=== PATIENT | male | born 1950 | race African-American/Black ===

== ENCOUNTER 2022-09-19 05:54 | Day surgery (SDC) | payer OTHER ==
[2022-09-18 10:44] VITALS: BMI 18.4
[2022-09-19] MEDS ORDERED: EPINEPHrine 1 MG/ML AMP ONE (06:20)
[2022-09-19] MEDS ORDERED: Bupivacaine PF 0.5% 30 ML VIAL ONE (06:21)
[2022-09-19] MEDS ORDERED: CEFAZOLIN 2 GM VIAL ONE (06:48)
[2022-09-19] MEDS ORDERED: PROPOFOL 20 ML ONE (06:56)
[2022-09-19] MEDS ORDERED: Fentanyl 100 MCG/2 ML VIAL ONE (06:56)
[2022-09-19] MEDS ORDERED: Lidocaine 1% PF 5 ML VIAL ONE (06:56)
[2022-09-19] MEDS ORDERED: Ondansetron PF 4 MG/2 ML Vial ONE (06:57)
[2022-09-19] MEDS ORDERED: ePHEDrine Sulfate 50 MG/10 ML VIAL ONE (07:12)
[2022-09-19] MEDS ORDERED: Acetaminophen 325 MG TAB PO PRN (07:42)
[2022-09-19] MEDS ORDERED: HYDROcodone/Acetaminophen 5/325 mg Tablet PO PRN (07:42)
== END 2022-09-19 09:25 | disposition home or self-care (01) ==
LOC: CSHSDC 05:54
PROVIDERS: ATTEND Surgery
PROC: 0JH60WZ Insertion of Totally Implantable Vascular Access Device into Chest Subcutaneous Tissue and Fascia, Open Approach (ICD-10-PCS; principal; 2022-09-19)
DX: C02.9 Malignant neoplasm of tongue, unspecified (principal); J44.9 Chronic obstructive pulmonary disease, unspecified; E11.9 Type 2 diabetes mellitus without complications; F17.210 Nicotine dependence, cigarettes, uncomplicated; I10 Essential (primary) hypertension; Z79.84 Long term (current) use of oral hypoglycemic drugs; Z79.899 Other long term (current) drug therapy
CPT/HCPCS: 36416; 71045; C1788; J0171; J1642; J2405; J2704; J3010; S0020

== ENCOUNTER 2022-09-19 16:21 | Inpatient (IN) | payer MEDICARE, OTHER ==
[~2022-09-19 16:21] MED LIST: Iopamidol 370 76% 100 ML VIAL ONE
[2022-09-19] MEDS ORDERED: Ipratropium/Albuterol 3 ML NEB ONE (16:48)
[2022-09-19] MEDS ORDERED: Dexamethasone 10 MG/ML VIAL ONE ×2 (16:48→20:14)
[2022-09-19] MEDS ORDERED: Magnesium 2 GM/50 ML BAG (IN WATER) ONE (16:48)
[2022-09-19 17:37] LABS: Hemoglobin 14.8 g/dL (13.5-17.5); Mean Corpuscular HGB CONC 35.6 g/dL (32.0-36.0); Mean Corpuscular Volume 92.9 fl (81.2-95.1); Mean Platelet Volume 8.5 fl (7.4-10.4); Platelet Count 262 10x3/uL (150-450); RBC Distribution Width 14.4 % (11.5-14.5); Red Blood Cell (RBC) Count 4.48 10x6/uL (4.32-5.72); White Blood Cell (WBC) Count 23.4 10x3/uL (3.5-10.5)
[2022-09-19 17:44] LABS: ALT (SGPT) 23 U/L (8-55); AST (SGOT) 17 U/L (5-34); Albumin 4.1 g/dL (3.4-4.8); Alkaline Phosphatase 81 U/L (40-110); Anion Gap 14 mmol/L (10-20); BUN (Urea Nitrogen) 30 mg/dL (8.4-25.7); Calc. Creatinine Clearance 0 mL/min (70-130); Calcium 9.7 mg/dL (7.8-10.44); Carbon Dioxide 31 mmol/L (23-31); Chloride 95 mmol/L (98-107); Estimated GFR 95; Globulin 2.9 g/dL (2.4-3.5); Glucose 116 mg/dL (83-110); Potassium 4.3 mmol/L (3.5-5.1); Sodium 136 mmol/L (136-145)
[2022-09-19 18:02] LABS: Band 7 % (5-11); Lymphocytes 3 % (21-51); Monocytes 5 % (0-10); Myelocyte 1 % (0-0); Reactive Lymphocytes 2 % (0-10)
[2022-09-19 18:06] LABS: Large Platelets SLIGHT; Neutrophil 82 % (42-75); Platelet Morphology Comment Appears Adequate
[2022-09-19 18:07] LABS: MDiff Complete? YES; RBC Morphology Normal
[2022-09-19 19:27] LABS: Bilirubin Neg (Negative); Blood, Urine Negative (Negative); Glucose, Urine (Dipstick) Normal (Negative); Ketone, Urine Negative (Negative); Leukocyte 25 (Negative); Nitrite Negative (Negative); Protein, Urine (Dipstick) Negative (Neg-Trace); Urobilinogen Normal mg/dL (Less than 2)
[2022-09-19 19:28] LABS: Clarity Hazy (Clear)
[2022-09-19 19:52] LABS: Bacteria/HPF 2+ HPF (None Seen); RBC/HPF 0-3 HPF (0-3); Squamous Epithelial 0-3 HPF (0-3)
[2022-09-19] MEDS ORDERED: Dextrose 50% Abboject 50 ML SYRINGE SLOW IVP PRN (23:08)
[2022-09-19] MEDS ORDERED: HumaLOG 300 UNITS/3 ML VIAL SC PRN (23:08)
[2022-09-19] MEDS ORDERED: Dextrose 5% in Water 1,000 ML IV PRN (23:08)
[2022-09-19] MEDS ORDERED: Ipratropium/Albuterol 3 ML NEB NEB PRN (23:10)
[2022-09-19] MEDS ORDERED: Aspirin Chewable 81 MG TAB PO SCH (23:30)
[2022-09-19 23:41] LABS: Magnesium 2.2 mg/dL (1.6-2.6)
[2022-09-19 23:48] LABS: Troponin I 0.015 ng/mL (< 0.028)
[2022-09-20 01:23] VITALS: BMI 17.6
[2022-09-20] MEDS ORDERED: Vancomycin HCl 1 GM in Sodium Chloride 0.9% 250 ML 250 ML IVPB SCH (02:00)
[2022-09-20] MEDS: Lactated Ringer's 1,000 ML IV SCH ×2 (02:26→14:37)
[2022-09-20] MEDS ORDERED: FLU VACC QS2022-23(65YR UP)/PF 240 MCG/0.7 ML SYRINGE IM ONE (02:45)
[2022-09-20] MEDS: cefTRIAXone\\ROCEPHIN 1 GM in Sodium Chloride 0.9% 100 ML IVPB SCH (03:34)
[2022-09-20 06:11] LABS: #Monocytes 0.8 10x3/uL (0.0-1.1); #Neutrophils 16.6 10x3/uL (1.5-8.4); %Basophils 0.2 % (0.0-2.0); %Monocytes 4.5 % (0.0-10.0); %Neutrophils 92.3 % (40.0-75.0); Hemoglobin 12.6 g/dL (13.5-17.5); Mean Corpuscular HGB CONC 36.3 g/dL (32.0-36.0); Mean Corpuscular Hemoglobin 33.1 pg (27.0-33.0); Mean Corpuscular Volume 91.1 fl (81.2-95.1); Mean Platelet Volume 8.7 fl (7.4-10.4); Platelet Count 236 10x3/uL (150-450); RBC Distribution Width 14.2 % (11.5-14.5); Red Blood Cell (RBC) Count 3.81 10x6/uL (4.32-5.72)
[2022-09-20 06:32] LABS: Anion Gap 14 mmol/L (10-20); BUN (Urea Nitrogen) 25 mg/dL (8.4-25.7); Calc. Creatinine Clearance 72 mL/min (70-130); Calcium 8.5 mg/dL (7.8-10.44); Carbon Dioxide 26 mmol/L (23-31); Chloride 100 mmol/L (98-107); Estimated GFR 97; Glucose 236 mg/dL (83-110); Potassium 4.5 mmol/L (3.5-5.1); Sodium 135 mmol/L (136-145)
[2022-09-20 06:36] LABS: Troponin I 0.022 ng/mL (< 0.028)
[2022-09-20] MEDS: Aspirin 81 mg Enteric Coated Tablet PO SCH (09:01)
[2022-09-20] MEDS: Vancomycin HCl 750 MG in Sodium Chloride 0.9% 250 ML 250 ML IVPB SCH (14:37)
[2022-09-20] MEDS ORDERED: HYDROcodone/Acetaminophen 5/325 mg Tablet PO SCH (22:00)
[2022-09-21] MEDS: cefTRIAXone\\ROCEPHIN 1 GM in Sodium Chloride 0.9% 100 ML IVPB SCH ×2 (00:41→23:36)
[2022-09-21] MEDS: Lactated Ringer's 1,000 ML IV SCH (01:45)
[2022-09-21] MEDS: Vancomycin HCl 750 MG in Sodium Chloride 0.9% 250 ML 250 ML IVPB SCH ×2 (01:46→15:27)
[2022-09-21] MEDS ORDERED: HYDROcodone/Acetaminophen 5/325 mg Tablet PO SCH (05:15)
[2022-09-21] MEDS: Aspirin 81 mg Enteric Coated Tablet PO SCH (08:23)
[2022-09-21 09:31] LABS: #Monocytes 1.3 10x3/uL (0.0-1.1); #Neutrophils 16.7 10x3/uL (1.5-8.4); %Basophils 0.2 % (0.0-2.0); %Eosinophils 0.1 % (0.0-6.0); %Lymphocytes 3.6 % (18.0-47.0); %Neutrophils 88.4 % (40.0-75.0); Hemoglobin 14.7 g/dL (13.5-17.5); Mean Corpuscular HGB CONC 36.2 g/dL (32.0-36.0); Mean Corpuscular Hemoglobin 33.3 pg (27.0-33.0); Mean Corpuscular Volume 92.1 fl (81.2-95.1); Mean Platelet Volume 8.8 fl (7.4-10.4); Platelet Count 243 10x3/uL (150-450); RBC Distribution Width 14.4 % (11.5-14.5); Red Blood Cell (RBC) Count 4.41 10x6/uL (4.32-5.72); White Blood Cell (WBC) Count 18.8 10x3/uL (3.5-10.5)
[2022-09-21 09:45] LABS: Anion Gap 12 mmol/L (10-20); BUN (Urea Nitrogen) 16 mg/dL (8.4-25.7); Calc. Creatinine Clearance 76 mL/min (70-130); Calcium 8.8 mg/dL (7.8-10.44); Carbon Dioxide 25 mmol/L (23-31); Chloride 101 mmol/L (98-107); Estimated GFR 99; Glucose 126 mg/dL (83-110); Potassium 3.6 mmol/L (3.5-5.1); Sodium 134 mmol/L (136-145)
[2022-09-21] MEDS: Ciprofloxacin 0.3% Ophth Soln 2.5 ml Bottle EA EYE SCH ×3 (13:14→20:18)
[2022-09-21 13:52] LABS: Vancomycin, Trough 9.4 ug/mL
[2022-09-21] MEDS ORDERED: Iopamidol 300 61% 100 ML VIAL FS ONE (14:59)
[2022-09-22] MEDS ORDERED: HYDROcodone/Acetaminophen 5/325 mg Tablet PO PRN (01:22)
[2022-09-22] MEDS ORDERED: Morphine 2 MG/ML VIAL SLOW IVP SCH (01:30)
[2022-09-22] MEDS: Vancomycin HCl 750 MG in Sodium Chloride 0.9% 250 ML 250 ML IVPB SCH (01:33)
[2022-09-22 06:25] LABS: Anion Gap 13 mmol/L (10-20); BUN (Urea Nitrogen) 13 mg/dL (8.4-25.7); Calc. Creatinine Clearance 68 mL/min (70-130); Calcium 8.8 mg/dL (7.8-10.44); Carbon Dioxide 28 mmol/L (23-31); Chloride 101 mmol/L (98-107); Estimated GFR 98; Glucose 70 mg/dL (83-110); Potassium 4.5 mmol/L (3.5-5.1); Sodium 137 mmol/L (136-145)
[2022-09-22 06:31] LABS: #Monocytes 1.1 10x3/uL (0.0-1.1); #Neutrophils 10.4 10x3/uL (1.5-8.4); %Basophils 0.2 % (0.0-2.0); %Eosinophils 0.2 % (0.0-6.0); %Lymphocytes 5.6 % (18.0-47.0); %Neutrophils 83.9 % (40.0-75.0); Hemoglobin 13.8 g/dL (13.5-17.5); Mean Corpuscular HGB CONC 35.6 g/dL (32.0-36.0); Mean Corpuscular Volume 92.8 fl (81.2-95.1); Mean Platelet Volume 9.1 fl (7.4-10.4); Platelet Count 225 10x3/uL (150-450); RBC Distribution Width 14.3 % (11.5-14.5); Red Blood Cell (RBC) Count 4.18 10x6/uL (4.32-5.72); White Blood Cell (WBC) Count 12.4 10x3/uL (3.5-10.5)
[2022-09-22] MEDS: Ciprofloxacin 0.3% Ophth Soln 2.5 ml Bottle EA EYE SCH (08:24)
[2022-09-22] MEDS: Aspirin 81 mg Enteric Coated Tablet PO SCH (08:24)
[2022-09-22 08:50] VITALS: BP 129/75; TEMP 98.9
== END 2022-09-22 11:23 | disposition home health service (06) | DRG 125 ==
LOC: CSHERS 16:21 → CSHTELE 20:08 → OBSVTOIN 09-21 14:46
PROVIDERS: ADMIT Family Medicine; ATTEND Family Medicine
DX: H10.32 Unspecified acute conjunctivitis, left eye (principal); C79.89 Secondary malignant neoplasm of other specified sites; E44.0 Moderate protein-calorie malnutrition; Z68.1 Body mass index [BMI] 19.9 or less, adult; M54.2 Cervicalgia; R13.10 Dysphagia, unspecified; J44.9 Chronic obstructive pulmonary disease, unspecified; F17.210 Nicotine dependence, cigarettes, uncomplicated; G89.3 Neoplasm related pain (acute) (chronic); E78.5 Hyperlipidemia, unspecified; I25.10 Atherosclerotic heart disease of native coronary artery without angina pectoris; E11.9 Type 2 diabetes mellitus without complications; Z95.5 Presence of coronary angioplasty implant and graft; Z79.899 Other long term (current) drug therapy; Z85.038 Personal history of other malignant neoplasm of large intestine
CPT/HCPCS: 36415; 36416; 70487; 70491; 71045; 71275; 74230; 80048; 80053; 80202; 81003; 81015; 83735; 83880; 84145; 84484; 85025; 87040; 87070; 87077; 87086; 87186; 87205; 93005; 93010; 94760; 96372; 96375; 96376; C1788; G0378; J0171; J0696; J1100; J1642; J1650; J1815; J2272; J2405; J2704; J3010; J3370; J3475; J3490; J7050; J7120; J7620; Q9967; S0020

== ENCOUNTER 2022-09-25 18:38 | Inpatient (IN) | payer OTHER ==
[2022-09-25 19:26] LABS: #Neutrophils 9.7 10x3/uL (1.5-8.4); %Basophils 0.1 % (0.0-2.0); %Eosinophils 0.3 % (0.0-6.0); %Lymphocytes 5.4 % (18.0-47.0); %Monocytes 8.8 % (0.0-10.0); %Neutrophils 84.8 % (40.0-75.0); Hemoglobin 12.7 g/dL (13.5-17.5); Mean Corpuscular HGB CONC 35.2 g/dL (32.0-36.0); Mean Corpuscular Volume 93.8 fl (81.2-95.1); Mean Platelet Volume 9.2 fl (7.4-10.4); Platelet Count 194 10x3/uL (150-450); RBC Distribution Width 14.4 % (11.5-14.5); Red Blood Cell (RBC) Count 3.85 10x6/uL (4.32-5.72); White Blood Cell (WBC) Count 11.4 10x3/uL (3.5-10.5)
[2022-09-25 19:40] LABS: ALT (SGPT) 13 U/L (8-55); AST (SGOT) 16 U/L (5-34); Albumin 3.6 g/dL (3.4-4.8); Alkaline Phosphatase 61 U/L (40-110); Anion Gap 11 mmol/L (10-20); BUN (Urea Nitrogen) 15 mg/dL (8.4-25.7); Bilirubin, Total 1.1 mg/dL (0.2-1.2); Calc. Creatinine Clearance 0 mL/min (70-130); Calcium 9.3 mg/dL (7.8-10.44); Carbon Dioxide 27 mmol/L (23-31); Chloride 99 mmol/L (98-107); Estimated GFR 97; Globulin 3.2 g/dL (2.4-3.5); Glucose 101 mg/dL (83-110); Lipase 29 U/L (8-78); Potassium 4.1 mmol/L (3.5-5.1); Protein, Total 6.8 g/dL (5.8-8.1); Sodium 133 mmol/L (136-145)
[2022-09-25] MEDS ORDERED: Acetaminophen 650 MG/20.3 ML UDCUP ONE (19:44)
[2022-09-25] MEDS ORDERED: Erythromycin Base 0.5% Oint 1 GM TUBE ONE (20:11)
[2022-09-25] MEDS ORDERED: methylPREDNISolone Sod Succ/PF 125 MG/2 ML VIAL ONE (20:12)
[2022-09-25] MEDS ORDERED: Ipratropium/Albuterol 3 ML NEB ONE (20:23)
[2022-09-25 21:17] LABS: SARS-CoV-2 NAA Rapid Test Not Detected (NotDetected)
[2022-09-25] MEDS ORDERED: Ondansetron PF 4 MG/2 ML Vial IVP PRN (23:32)
[2022-09-25] MEDS ORDERED: Acetaminophen 650 MG Suppository PR PRN (23:32)
[2022-09-25] MEDS ORDERED: Dextrose 5% in Water 1,000 ML IV PRN (23:32)
[2022-09-25] MEDS ORDERED: Dextrose 50% Abboject 50 ML SYRINGE SLOW IVP PRN (23:32)
[2022-09-25] MEDS ORDERED: Guaifenesin DM 100-10/5 ML UDCUP PO PRN (23:32)
[2022-09-25] MEDS ORDERED: Ipratropium/Albuterol 3 ML NEB NEB PRN (23:37)
[2022-09-25] MEDS ORDERED: Piperacillin/Tazobactam 3.375 GM in Sodium Chloride 0.9% 100 ML IVPB SCH (23:45)
[2022-09-25] MEDS ORDERED: Vancomycin 1 GM VIAL ONE (23:50)
[2022-09-26] MEDS ORDERED: Pharmacy to Dose ABX/VANCOMYCIN IVPB PRN
[2022-09-26] MEDS ORDERED: Lactated Ringer's 1,000 ML IV SCH ×2 (06:00→17:25)
[2022-09-26] MEDS ORDERED: Piperacillin/Tazobactam 3.375 GM in Sodium Chloride 0.9% 100 ML IVPB SCH (06:00)
[2022-09-26] MEDS ORDERED: Piperacillin/Tazobactam 3.375 GM VIAL ONE (06:58)
[2022-09-26] MEDS: HumaLOG 300 UNITS/3 ML VIAL SC PRN (07:01)
[2022-09-26 07:03] VITALS: BMI 16.7
[2022-09-26] MEDS: Mometasone/Formoterol 200/5 60 PUFF INH SCH ×2 (07:30→20:24)
[2022-09-26 08:39] LABS: #Monocytes 0.2 10x3/uL (0.0-1.1); #Neutrophils 3.9 10x3/uL (1.5-8.4); %Monocytes 3.8 % (0.0-10.0); %Neutrophils 87.8 % (40.0-75.0); Hemoglobin 10.8 g/dL (13.5-17.5); Mean Corpuscular HGB CONC 35.5 g/dL (32.0-36.0); Mean Corpuscular Hemoglobin 32.3 pg (27.0-33.0); Mean Platelet Volume 9.1 fl (7.4-10.4); Platelet Count 165 10x3/uL (150-450); RBC Distribution Width 13.9 % (11.5-14.5); Red Blood Cell (RBC) Count 3.34 10x6/uL (4.32-5.72); White Blood Cell (WBC) Count 4.5 10x3/uL (3.5-10.5)
[2022-09-26 08:43] LABS: Anion Gap 13 mmol/L (10-20); BUN (Urea Nitrogen) 11 mg/dL (8.4-25.7); Calc. Creatinine Clearance 70 mL/min (70-130); Calcium 8.8 mg/dL (7.8-10.44); Carbon Dioxide 21 mmol/L (23-31); Chloride 105 mmol/L (98-107); Estimated GFR 98; Glucose 194 mg/dL (83-110); Potassium 4.1 mmol/L (3.5-5.1); Sodium 135 mmol/L (136-145)
[2022-09-26] MEDS: Famotidine/PF 20 mg/2ml Vial SLOW IVP SCH ×2 (09:15→22:45)
[2022-09-26] MEDS: Piperacillin/Tazobactam 3.375 GM in Sodium Chloride 0.9% 100 ML IVPB SCH ×2 (09:18→18:55)
[2022-09-26] MEDS: methylPREDNISolone Sod Succ 40 MG VIAL IVP SCH ×2 (09:18→22:45)
[2022-09-26] MEDS: Nystatin 500,000 UNITS/5 ML UDCUP SSW SCH ×4 (09:18→22:46)
[2022-09-26] MEDS: Ciprofloxacin 0.3% Ophth Soln 2.5 ml Bottle EA EYE SCH ×4 (10:43→22:45)
[2022-09-26] MEDS: Aspirin 81 mg Enteric Coated Tablet PO SCH (10:43)
[2022-09-26] MEDS: Vancomycin HCl 500 MG in Sodium Chloride 0.9% 100 ML IVPB SCH ×2 (12:27→22:45)
[2022-09-26] MEDS ORDERED: D5W-AA 4.25% with LYTES 1,000 ML IV SCH (18:00)
[2022-09-26] MEDS ORDERED: Amino Acids 4.25 %/Dextrose 5% 2,000 ML BAG IV SCH (18:00)
[2022-09-26] MEDS ORDERED: HYDROcodone/Acetaminophen 5/325 mg Tablet PO PRN (23:06)
[2022-09-27] MEDS ORDERED: Sodium Chloride 0.9% 100 ML ONE (01:59)
[2022-09-27] MEDS ORDERED: Piperacillin/Tazobactam 3.375 GM VIAL ONE (01:59)
[2022-09-27] MEDS: Piperacillin/Tazobactam 3.375 GM in Sodium Chloride 0.9% 100 ML IVPB SCH (02:11)
[2022-09-27] MEDS: HumaLOG 300 UNITS/3 ML VIAL SC PRN (05:41)
[2022-09-27 06:40] LABS: Anion Gap 11 mmol/L (10-20); BUN (Urea Nitrogen) 11 mg/dL (8.4-25.7); Calc. Creatinine Clearance 67 mL/min (70-130); Calcium 8.8 mg/dL (7.8-10.44); Carbon Dioxide 25 mmol/L (23-31); Chloride 105 mmol/L (98-107); Estimated GFR 97; Glucose 215 mg/dL (83-110); Phosphorus 2.9 mg/dL (2.3-4.7); Potassium 3.9 mmol/L (3.5-5.1); Sodium 137 mmol/L (136-145)
[2022-09-27] MEDS: Mometasone/Formoterol 200/5 60 PUFF INH SCH (07:38)
[2022-09-27] MEDS: Aspirin 81 mg Enteric Coated Tablet PO SCH (08:32)
[2022-09-27] MEDS: methylPREDNISolone Sod Succ 40 MG VIAL IVP SCH (08:32)
[2022-09-27] MEDS: Nystatin 500,000 UNITS/5 ML UDCUP SSW SCH (08:32)
[2022-09-27] MEDS: Famotidine/PF 20 mg/2ml Vial SLOW IVP SCH (08:33)
[2022-09-27] MEDS: Ciprofloxacin 0.3% Ophth Soln 2.5 ml Bottle EA EYE SCH (08:42)
[2022-09-27 09:23] VITALS: BP 126/67; TEMP 97.3
== END 2022-09-27 09:50 | disposition home or self-care (01) | DRG 147 ==
LOC: CSHERS 18:38 → CSHTELE 23:32 → UNDOADMIN 09-26 05:38 → CSHTELE 09-26 05:38
PROVIDERS: ADMIT Student in an Organized Health Care Education/Training Program; ATTEND Internal Medicine
DX: D00.07 Carcinoma in situ of tongue (principal); E44.0 Moderate protein-calorie malnutrition; J44.1 Chronic obstructive pulmonary disease with (acute) exacerbation; R65.10 Systemic inflammatory response syndrome (SIRS) of non-infectious origin without acute organ dysfunction; I25.10 Atherosclerotic heart disease of native coronary artery without angina pectoris; E78.5 Hyperlipidemia, unspecified; E11.9 Type 2 diabetes mellitus without complications; R53.81 Other malaise; R13.10 Dysphagia, unspecified; H10.9 Unspecified conjunctivitis; Z20.822 Contact with and (suspected) exposure to COVID-19; Z79.899 Other long term (current) drug therapy; Z79.82 Long term (current) use of aspirin; Z95.5 Presence of coronary angioplasty implant and graft; Z98.890 Other specified postprocedural states; Z87.891 Personal history of nicotine dependence
CPT/HCPCS: 36415; 36416; 70450; 71045; 71275; 80048; 80053; 83605; 83690; 83880; 84100; 84145; 84484; 85025; 87040; 93005; 94664; 94760; 96374; 96375; J1650; J1815; J1956; J2543; J2920; J2930; J3370; J3490; J7120; J7620; Q9967; S0028

== ENCOUNTER 2022-10-08 11:16 | Inpatient (IN) | payer OTHER ==
[2022-10-08 12:29] LABS: Hemoglobin 12.3 g/dL (13.5-17.5); Mean Corpuscular HGB CONC 35.3 g/dL (32.0-36.0); Mean Corpuscular Hemoglobin 33.1 pg (27.0-33.0); Mean Corpuscular Volume 93.5 fl (81.2-95.1); Mean Platelet Volume 9.3 fl (7.4-10.4); Platelet Count 249 10x3/uL (150-450); RBC Distribution Width 13.2 % (11.5-14.5); Red Blood Cell (RBC) Count 3.72 10x6/uL (4.32-5.72); White Blood Cell (WBC) Count 26.6 10x3/uL (3.5-10.5)
[2022-10-08 12:33] LABS: MDiff Complete? YES
[2022-10-08 12:42] LABS: ALT (SGPT) 13 U/L (8-55); AST (SGOT) 18 U/L (5-34); Albumin 3.4 g/dL (3.4-4.8); Alkaline Phosphatase 84 U/L (40-110); Anion Gap 13 mmol/L (10-20); BUN (Urea Nitrogen) 24 mg/dL (8.4-25.7); Bilirubin, Total 1.1 mg/dL (0.2-1.2); Calc. Creatinine Clearance 0 mL/min (70-130); Calcium 9.3 mg/dL (7.8-10.44); Carbon Dioxide 27 mmol/L (23-31); Chloride 97 mmol/L (98-107); Estimated GFR 82; Globulin 3.2 g/dL (2.4-3.5); Glucose 139 mg/dL (83-110); Potassium 3.7 mmol/L (3.5-5.1); Protein, Total 6.6 g/dL (5.8-8.1); Sodium 133 mmol/L (136-145)
[2022-10-08 12:50] LABS: Band 17 % (5-11); Lymphocytes 2 % (21-51); Monocytes 4 % (0-10); Neutrophil 77 % (42-75)
[2022-10-08 12:53] LABS: Dohle Bodies SLIGHT; Platelet Morphology Comment Appears Adequate
[2022-10-08 12:56] LABS: Ovalocytes SLIGHT = 2-5 cells (100X) (0-1/hpf)
[2022-10-08 12:57] LABS: Large Platelets SLIGHT
[2022-10-08] MEDS ORDERED: Vancomycin 1 GM VIAL ONE (13:24)
[2022-10-08] MEDS ORDERED: Cefepime 2 GM VIAL ONE (13:24)
[2022-10-08 15:02] LABS: Bilirubin Neg (Negative); Blood, Urine Negative (Negative); Clarity Clear (Clear); Glucose, Urine (Dipstick) Normal (Negative); Ketone, Urine 5 mg/dL (Negative); Leukocyte Negative (Negative); Nitrite Negative (Negative); Protein, Urine (Dipstick) 30 mg/dl (Neg-Trace); Urobilinogen Normal mg/dL (Less than 2)
[2022-10-08] MEDS ORDERED: Ondansetron PF 4 MG/2 ML Vial IVP PRN (15:02)
[2022-10-08] MEDS ORDERED: Ondansetron ODT 4 MG TAB PO PRN (15:02)
[2022-10-08] MEDS ORDERED: Senokot S 8.6-50 MG TAB PO PRN (15:02)
[2022-10-08] MEDS ORDERED: Lactated Ringer's 1,000 ML IV SCH ×2 (15:15→16:46)
[2022-10-08 15:43] LABS: RBC/HPF 0-3 HPF (0-3)
[2022-10-08 15:45] LABS: Bacteria/HPF 2+ HPF (None Seen); Mucous/LPF 2+ LPF (<2+); Squamous Epithelial 0-3 HPF (0-3)
[2022-10-08 15:47] LABS: White Blood Cell Cast 0-3 LPF (None Seen)
[2022-10-08] MEDS ORDERED: Dextrose 5% in Water 1,000 ML IV PRN (16:30)
[2022-10-08] MEDS ORDERED: Dextrose 50% Abboject 50 ML SYRINGE SLOW IVP PRN (16:30)
[2022-10-08] MEDS ORDERED: D5W-AA 4.25% with LYTES 1,000 ML IV SCH (17:00)
[2022-10-08] MEDS: D5W-AA 4.25% with LYTES 1,000 ML IV SCH (18:30)
[2022-10-08] MEDS ORDERED: Ciprofloxacin 0.3% Ophth Soln 2.5 ml Bottle L EYE SCH ×2 (21:00→23:30)
[2022-10-08] MEDS: Morphine 2 MG/ML VIAL SLOW IVP PRN (21:33)
[2022-10-09] MEDS: Cefepime 2 GM in Sodium Chloride 0.9% 100 ML IVPB SCH ×2 (00:27→13:28)
[2022-10-09] MEDS: Nicotine 14 MG PATCH TD SCH ×2 (00:58→15:33)
[2022-10-09 01:18] LABS: SARS-CoV-2 NAA Rapid Test Not Detected (NotDetected)
[2022-10-09] MEDS: Vancomycin HCl 750 MG in Sodium Chloride 0.9% 250 ML 250 ML IVPB SCH ×2 (04:54→15:33)
[2022-10-09 05:41] LABS: Hemoglobin 9.9 g/dL (13.5-17.5); Mean Corpuscular Volume 91.7 fl (81.2-95.1); Mean Platelet Volume 9.1 fl (7.4-10.4); Platelet Count 219 10x3/uL (150-450); White Blood Cell (WBC) Count 20.8 10x3/uL (3.5-10.5)
[2022-10-09 06:02] LABS: Anion Gap 11 mmol/L (10-20); BUN (Urea Nitrogen) 18 mg/dL (8.4-25.7); Calc. Creatinine Clearance 62 mL/min (70-130); Calcium 8.5 mg/dL (7.8-10.44); Carbon Dioxide 27 mmol/L (23-31); Chloride 102 mmol/L (98-107); Estimated GFR 96; Glucose 133 mg/dL (83-110); Potassium 3.7 mmol/L (3.5-5.1); Sodium 136 mmol/L (136-145)
[2022-10-09 06:06] LABS: MDiff Complete? YES
[2022-10-09 06:11] LABS: Band 38 % (5-11); Lymphocytes 1 % (21-51); Monocytes 4 % (0-10); Neutrophil 57 % (42-75)
[2022-10-09 06:12] LABS: Platelet Morphology Comment Appears Adequate; RBC Morphology Normal
[2022-10-09 07:17] LABS: Dohle Bodies SLIGHT
[2022-10-09] MEDS: Ciprofloxacin 0.3% Ophth Soln 2.5 ml Bottle L EYE SCH ×2 (08:42→21:00)
[2022-10-09] MEDS: Morphine 2 MG/ML VIAL SLOW IVP PRN (17:28)
[2022-10-10 01:56] LABS: Hemoglobin 10.8 g/dL (13.5-17.5); Mean Corpuscular HGB CONC 36.1 g/dL (32.0-36.0); Mean Corpuscular Hemoglobin 32.8 pg (27.0-33.0); Mean Corpuscular Volume 90.9 fl (81.2-95.1); Mean Platelet Volume 8.9 fl (7.4-10.4); Platelet Count 227 10x3/uL (150-450); RBC Distribution Width 12.8 % (11.5-14.5); Red Blood Cell (RBC) Count 3.29 10x6/uL (4.32-5.72); White Blood Cell (WBC) Count 14.3 10x3/uL (3.5-10.5)
[2022-10-10 02:16] LABS: MDiff Complete? YES
[2022-10-10 02:18] LABS: Vancomycin, Trough 6.9 ug/mL
[2022-10-10 02:19] LABS: Anion Gap 14 mmol/L (10-20); BUN (Urea Nitrogen) 14 mg/dL (8.4-25.7); Calc. Creatinine Clearance 63 mL/min (70-130); Carbon Dioxide 27 mmol/L (23-31); Chloride 100 mmol/L (98-107); Estimated GFR 96; Glucose 98 mg/dL (83-110); Potassium 3.7 mmol/L (3.5-5.1); Sodium 137 mmol/L (136-145)
[2022-10-10 02:21] LABS: Band 26 % (5-11); Lymphocytes 3 % (21-51); Metamyelocyte 1 % (0-0); Monocytes 14 % (0-10); Neutrophil 56 % (42-75)
[2022-10-10 02:24] LABS: Dohle Bodies MODERATE; Platelet Morphology Comment Appears Adequate; Toxic Granulation SLIGHT
[2022-10-10 02:26] LABS: RBC Morphology Normal
[2022-10-10] MEDS: Cefepime 2 GM in Sodium Chloride 0.9% 100 ML IVPB SCH ×2 (02:30→13:17)
[2022-10-10] MEDS: Morphine 2 MG/ML VIAL SLOW IVP PRN ×2 (03:03→20:16)
[2022-10-10] MEDS: Vancomycin HCl 750 MG in Sodium Chloride 0.9% 250 ML 250 ML IVPB SCH ×3 (03:29→16:54)
[2022-10-10] MEDS: Ciprofloxacin 0.3% Ophth Soln 2.5 ml Bottle L EYE SCH ×2 (11:02→22:03)
[2022-10-10] MEDS: Nicotine 14 MG PATCH TD SCH (16:53)
[2022-10-10] MEDS: D5W-AA 4.25% with LYTES 1,000 ML IV SCH (20:17)
[2022-10-11] MEDS: Vancomycin HCl 750 MG in Sodium Chloride 0.9% 250 ML 250 ML IVPB SCH ×2 (01:21→08:15)
[2022-10-11] MEDS: Cefepime 2 GM in Sodium Chloride 0.9% 100 ML IVPB SCH ×2 (01:21→12:08)
[2022-10-11 01:52] LABS: Hemoglobin 9.7 g/dL (13.5-17.5); MDiff Complete? YES; Mean Corpuscular HGB CONC 35.9 g/dL (32.0-36.0); Mean Corpuscular Hemoglobin 33.2 pg (27.0-33.0); Mean Corpuscular Volume 92.5 fl (81.2-95.1); Mean Platelet Volume 9.1 fl (7.4-10.4); Platelet Count 230 10x3/uL (150-450); RBC Distribution Width 13.1 % (11.5-14.5); Red Blood Cell (RBC) Count 2.92 10x6/uL (4.32-5.72)
[2022-10-11 02:00] LABS: Vancomycin, Trough 17.1 ug/mL
[2022-10-11 02:14] LABS: Band 8 % (5-11); Dohle Bodies SLIGHT; Lymphocytes 3 % (21-51); Metamyelocyte 1 % (0-0); Monocytes 9 % (0-10); Neutrophil 78 % (42-75); Reactive Lymphocytes 1 % (0-10); Toxic Granulation SLIGHT
[2022-10-11 02:15] LABS: Platelet Morphology Comment Appears Adequate
[2022-10-11 02:44] LABS: Anion Gap 13 mmol/L (10-20); BUN (Urea Nitrogen) 11 mg/dL (8.4-25.7); Calc. Creatinine Clearance 63 mL/min (70-130); Calcium 8.4 mg/dL (7.8-10.44); Carbon Dioxide 26 mmol/L (23-31); Chloride 103 mmol/L (98-107); Estimated GFR 96; Glucose 101 mg/dL (83-110); Potassium 3.6 mmol/L (3.5-5.1); Sodium 138 mmol/L (136-145)
[2022-10-11] MEDS: Ciprofloxacin 0.3% Ophth Soln 2.5 ml Bottle L EYE SCH ×2 (08:16→22:00)
[2022-10-11] MEDS: Morphine 2 MG/ML VIAL SLOW IVP PRN ×3 (12:29→23:58)
[2022-10-11] MEDS: D5W-AA 4.25% with LYTES 1,000 ML IV SCH (16:02)
[2022-10-11] MEDS: Nicotine 14 MG PATCH TD SCH (16:03)
[2022-10-11] MEDS: Vancomycin HCl 500 MG in Sodium Chloride 0.9% 250 ML 250 ML IVPB SCH (17:14)
[2022-10-12] MEDS: Cefepime 2 GM in Sodium Chloride 0.9% 100 ML IVPB SCH ×2 (00:27→15:03)
[2022-10-12] MEDS: Vancomycin HCl 500 MG in Sodium Chloride 0.9% 250 ML 250 ML IVPB SCH (02:34)
[2022-10-12] MEDS: D5W-AA 4.25% with LYTES 1,000 ML IV SCH ×2 (05:13→23:24)
[2022-10-12 06:06] LABS: Hemoglobin 11.1 g/dL (13.5-17.5); MDiff Complete? YES; Mean Corpuscular HGB CONC 35.6 g/dL (32.0-36.0); Mean Corpuscular Volume 92.9 fl (81.2-95.1); Mean Platelet Volume 9.3 fl (7.4-10.4); Platelet Count 267 10x3/uL (150-450); RBC Distribution Width 13.2 % (11.5-14.5); Red Blood Cell (RBC) Count 3.36 10x6/uL (4.32-5.72); White Blood Cell (WBC) Count 14.1 10x3/uL (3.5-10.5)
[2022-10-12 06:18] LABS: Anion Gap 13 mmol/L (10-20); BUN (Urea Nitrogen) 12 mg/dL (8.4-25.7); Calc. Creatinine Clearance 62 mL/min (70-130); Calcium 8.9 mg/dL (7.8-10.44); Carbon Dioxide 27 mmol/L (23-31); Chloride 100 mmol/L (98-107); Estimated GFR 96; Glucose 111 mg/dL (83-110); Magnesium 1.6 mg/dL (1.6-2.6); Phosphorus 2.6 mg/dL (2.3-4.7); Potassium 3.4 mmol/L (3.5-5.1); Sodium 137 mmol/L (136-145)
[2022-10-12 06:33] LABS: Band 8 % (5-11); Lymphocytes 11 % (21-51); Monocytes 7 % (0-10); Neutrophil 73 % (42-75); Platelet Morphology Comment Appears Adequate; Reactive Lymphocytes 1 % (0-10)
[2022-10-12] MEDS: Morphine 2 MG/ML VIAL SLOW IVP PRN (08:42)
[2022-10-12 09:09] LABS: Vancomycin, Trough 18.3 ug/mL
[2022-10-12] MEDS ORDERED: Ketamine 50 MG/ML (10ML VIAL) ONE (12:15)
[2022-10-12] MEDS ORDERED: Lidocaine 1% PF 5 ML VIAL ONE (12:23)
[2022-10-12] MEDS ORDERED: PROPOFOL 20 ML ONE (12:23)
[2022-10-12] MEDS ORDERED: Glycopyrrolate 0.2 MG/ML 5 ML SYRINGE ONE (12:32)
[2022-10-12] MEDS ORDERED: Meperidine HCl/PF 25 MG/ML VIAL ONE (13:01)
[2022-10-12] MEDS: Ciprofloxacin 0.3% Ophth Soln 2.5 ml Bottle L EYE SCH ×2 (15:03→21:46)
[2022-10-12] MEDS: Vancomycin HCl 750 MG in Sodium Chloride 0.9% 250 ML 250 ML IVPB SCH ×2 (15:48→21:46)
[2022-10-12] MEDS: Nicotine 14 MG PATCH TD SCH (17:53)
[2022-10-13] MEDS: Cefepime 2 GM in Sodium Chloride 0.9% 100 ML IVPB SCH ×2 (01:05→13:46)
[2022-10-13 04:51] LABS: Mean Corpuscular HGB CONC 35.6 g/dL (32.0-36.0); Mean Corpuscular Hemoglobin 32.5 pg (27.0-33.0); Mean Corpuscular Volume 91.2 fl (81.2-95.1); Mean Platelet Volume 9.3 fl (7.4-10.4); Platelet Count 235 10x3/uL (150-450); RBC Distribution Width 13.2 % (11.5-14.5); Red Blood Cell (RBC) Count 3.08 10x6/uL (4.32-5.72); White Blood Cell (WBC) Count 14.2 10x3/uL (3.5-10.5)
[2022-10-13 04:54] LABS: MDiff Complete? YES
[2022-10-13 04:58] LABS: Anion Gap 10 mmol/L (10-20); BUN (Urea Nitrogen) 14 mg/dL (8.4-25.7); Calc. Creatinine Clearance 65 mL/min (70-130); Calcium 8.5 mg/dL (7.8-10.44); Carbon Dioxide 27 mmol/L (23-31); Chloride 100 mmol/L (98-107); Estimated GFR 98; Glucose 127 mg/dL (83-110); Potassium 3.4 mmol/L (3.5-5.1); Sodium 134 mmol/L (136-145)
[2022-10-13 05:34] LABS: Band 11 % (5-11); Lymphocytes 6 % (21-51); Metamyelocyte 2 % (0-0); Monocytes 8 % (0-10); Myelocyte 1 % (0-0); Neutrophil 72 % (42-75)
[2022-10-13 05:36] LABS: Dohle Bodies SLIGHT; Hypochromia SLIGHT = 6-15 cells (100X) (0-5/hpf); Ovalocytes SLIGHT = 2-5 cells (100X) (0-1/hpf); Polychromasia SLIGHT = 2-3 cells (100X) (0-2/hpf); Toxic Granulation SLIGHT
[2022-10-13] MEDS: Morphine 2 MG/ML VIAL SLOW IVP PRN (06:31)
[2022-10-13] MEDS ORDERED: Electrolyte Replacement Protocol 1 EACH FS PRN (07:31)
[2022-10-13] MEDS ORDERED: Magnesium 2 GM/50 ML(in water) 2 GM in Premix Bag 1 BAG IVPB SCH (08:15)
[2022-10-13] MEDS: Potassium Chloride 20 MEQ in Premix Bag 1 BAG IVPB SCH ×2 (09:49→12:41)
[2022-10-13] MEDS: Ciprofloxacin 0.3% Ophth Soln 2.5 ml Bottle L EYE SCH ×2 (09:52→21:33)
[2022-10-13] MEDS ORDERED: Iopamidol 370 76% 100 ML VIAL ONE (10:29)
[2022-10-13] MEDS ORDERED: Ipratropium/Albuterol 3 ML NEB NEB PRN (13:00)
[2022-10-13] MEDS: Aluminum & Magnesium Hydroxide 60 ML, Lidocaine 2% Viscous Solution 30 ML, diphenhydrAM... SSW PRN ×2 (13:46→22:31)
[2022-10-13] MEDS: Nicotine 14 MG PATCH TD SCH (15:38)
[2022-10-13] MEDS: D5W-AA 4.25% with LYTES 1,000 ML IV SCH (16:02)
[2022-10-13] MEDS ORDERED: Sodium Chloride 0.9% 500 ML IV SCH (16:15)
[2022-10-13] MEDS: Ipratropium Bromide 2.5 ml Neb NEB SCH (19:30)
[2022-10-13] MEDS: Mometasone/Formoterol 60 PUFF AER INH SCH (19:35)
[2022-10-13] MEDS: Nystatin 500,000 UNITS/5 ML UDCUP SSW SCH (21:33)
[2022-10-13] MEDS: Fluconazole In NaCl,Iso-Osm 200 MG in Premix Bag 1 BAG IVPB SCH (21:34)
[2022-10-13 22:06] LABS: Vancomycin, Trough 9.3 ug/mL
[2022-10-13] MEDS ORDERED: Lidocaine Viscous Sol 2% 15 ml UD Cup ONE (22:29)
[2022-10-13] MEDS: Acetaminophen 650 MG/20.3 ML UDCUP PO PRN (22:38)
[2022-10-14] MEDS: Ipratropium Bromide 2.5 ml Neb NEB SCH ×4 (01:52→19:30)
[2022-10-14] MEDS: Cefepime 2 GM in Sodium Chloride 0.9% 100 ML IVPB SCH ×2 (03:22→12:06)
[2022-10-14 03:57] LABS: Hemoglobin 10.3 g/dL (13.5-17.5); Mean Corpuscular HGB CONC 36.9 g/dL (32.0-36.0); Mean Corpuscular Hemoglobin 33.9 pg (27.0-33.0); Mean Corpuscular Volume 91.8 fl (81.2-95.1); Mean Platelet Volume 9.4 fl (7.4-10.4); Platelet Count 236 10x3/uL (150-450); RBC Distribution Width 13.6 % (11.5-14.5); Red Blood Cell (RBC) Count 3.04 10x6/uL (4.32-5.72); White Blood Cell (WBC) Count 15.3 10x3/uL (3.5-10.5)
[2022-10-14 04:04] LABS: Anion Gap 11 mmol/L (10-20); BUN (Urea Nitrogen) 17 mg/dL (8.4-25.7); Calc. Creatinine Clearance 66 mL/min (70-130); Calcium 8.8 mg/dL (7.8-10.44); Carbon Dioxide 27 mmol/L (23-31); Chloride 102 mmol/L (98-107); Estimated GFR 98; Glucose 143 mg/dL (83-110); Magnesium 1.9 mg/dL (1.6-2.6); Sodium 136 mmol/L (136-145)
[2022-10-14 04:18] LABS: MDiff Complete? YES
[2022-10-14 04:41] LABS: Band 9 % (5-11); Eosinophils 1 % (0-10); Lymphocytes 4 % (21-51); Monocytes 7 % (0-10); Neutrophil 79 % (42-75); Toxic Granulation SLIGHT
[2022-10-14 04:42] LABS: Dohle Bodies SLIGHT; Platelet Morphology Comment Appears Adequate
[2022-10-14] MEDS: D5W-AA 4.25% with LYTES 1,000 ML IV SCH (06:50)
[2022-10-14] MEDS: Mometasone/Formoterol 60 PUFF AER INH SCH ×2 (07:56→19:27)
[2022-10-14] MEDS ORDERED: Magnesium 2 GM/50 ML(in water) 2 GM in Premix Bag 1 BAG IVPB SCH (08:00)
[2022-10-14] MEDS: Nystatin 500,000 UNITS/5 ML UDCUP SSW SCH ×4 (09:09→21:36)
[2022-10-14] MEDS: Ciprofloxacin 0.3% Ophth Soln 2.5 ml Bottle L EYE SCH (09:09)
[2022-10-14] MEDS: Aluminum & Magnesium Hydroxide 60 ML, Lidocaine 2% Viscous Solution 30 ML, diphenhydrAM... SSW PRN (09:21)
[2022-10-14] MEDS: Acetaminophen 650 MG/20.3 ML UDCUP PO PRN (12:06)
[2022-10-14] MEDS: Vancomycin HCl 750 MG in Sodium Chloride 0.9% 250 ML 250 ML IVPB SCH (13:41)
[2022-10-14] MEDS: Tobramycin Sulfate 0.3% Ophth Susp 5 ml Bottle EA EYE SCH ×2 (16:13→21:36)
[2022-10-14] MEDS: Nicotine 14 MG PATCH TD SCH (16:13)
[2022-10-14] MEDS: Fluconazole In NaCl,Iso-Osm 200 MG in Premix Bag 1 BAG IVPB SCH (21:35)
[2022-10-15] MEDS: Morphine 2 MG/ML VIAL SLOW IVP PRN ×2 (00:19→19:24)
[2022-10-15] MEDS: Cefepime 2 GM in Sodium Chloride 0.9% 100 ML IVPB SCH ×2 (01:15→12:42)
[2022-10-15] MEDS: Tobramycin Sulfate 0.3% Ophth Susp 5 ml Bottle EA EYE SCH ×6 (01:15→21:25)
[2022-10-15] MEDS: Acetaminophen 650 MG/20.3 ML UDCUP PO PRN ×2 (01:16→21:35)
[2022-10-15] MEDS: Ipratropium Bromide 2.5 ml Neb NEB SCH ×4 (01:39→21:10)
[2022-10-15] MEDS: Vancomycin HCl 750 MG in Sodium Chloride 0.9% 250 ML 250 ML IVPB SCH ×2 (02:30→14:59)
[2022-10-15 04:34] LABS: Hemoglobin 9.5 g/dL (13.5-17.5); Mean Corpuscular HGB CONC 35.6 g/dL (32.0-36.0); Mean Corpuscular Hemoglobin 32.9 pg (27.0-33.0); Mean Corpuscular Volume 92.4 fl (81.2-95.1); Mean Platelet Volume 9.4 fl (7.4-10.4); Platelet Count 242 10x3/uL (150-450); RBC Distribution Width 14.1 % (11.5-14.5); Red Blood Cell (RBC) Count 2.89 10x6/uL (4.32-5.72); White Blood Cell (WBC) Count 15.8 10x3/uL (3.5-10.5)
[2022-10-15 04:36] LABS: ALT (SGPT) 44 U/L (8-55); AST (SGOT) 53 U/L (5-34); Albumin 2.5 g/dL (3.4-4.8); Alkaline Phosphatase 191 U/L (40-110); Anion Gap 10 mmol/L (10-20); BUN (Urea Nitrogen) 14 mg/dL (8.4-25.7); Bilirubin, Total 0.3 mg/dL (0.2-1.2); Calc. Creatinine Clearance 65 mL/min (70-130); Calcium 8.5 mg/dL (7.8-10.44); Carbon Dioxide 26 mmol/L (23-31); Chloride 103 mmol/L (98-107); Estimated GFR 96; Globulin 2.5 g/dL (2.4-3.5); Glucose 174 mg/dL (83-110); Sodium 135 mmol/L (136-145)
[2022-10-15 04:46] LABS: MDiff Complete? YES
[2022-10-15 05:30] LABS: Band 2 % (5-11); Lymphocytes 5 % (21-51); Monocytes 7 % (0-10); Neutrophil 86 % (42-75)
[2022-10-15 05:36] LABS: Hypochromia SLIGHT = 6-15 cells (100X) (0-5/hpf); Macrocytosis SLIGHT = 6-15 cells (100X) (0-5/hpf); Ovalocytes SLIGHT = 2-5 cells (100X) (0-1/hpf); Platelet Morphology Comment Appears Adequate; Polychromasia SLIGHT = 2-3 cells (100X) (0-2/hpf)
[2022-10-15] MEDS: Mometasone/Formoterol 60 PUFF AER INH SCH ×2 (06:45→21:10)
[2022-10-15] MEDS: Nystatin 500,000 UNITS/5 ML UDCUP SSW SCH ×4 (08:55→21:41)
[2022-10-15] MEDS ORDERED: Iopamidol 300 61% 100 ML VIAL FS ONE (11:07)
[2022-10-15] MEDS: Nicotine 14 MG PATCH TD SCH (16:47)
[2022-10-15] MEDS: Fluconazole In NaCl,Iso-Osm 200 MG in Premix Bag 1 BAG IVPB SCH (21:24)
[2022-10-16] MEDS: Ipratropium Bromide 2.5 ml Neb NEB SCH ×4 (01:00→19:45)
[2022-10-16 01:11] LABS: Vancomycin, Trough 13.5 ug/mL
[2022-10-16] MEDS: Cefepime 2 GM in Sodium Chloride 0.9% 100 ML IVPB SCH ×2 (02:53→13:27)
[2022-10-16] MEDS: Tobramycin Sulfate 0.3% Ophth Susp 5 ml Bottle EA EYE SCH ×6 (02:53→20:25)
[2022-10-16] MEDS: Vancomycin HCl 750 MG in Sodium Chloride 0.9% 250 ML 250 ML IVPB SCH ×2 (03:40→14:37)
[2022-10-16 05:07] LABS: Hemoglobin 10.8 g/dL (13.5-17.5); Mean Corpuscular HGB CONC 34.8 g/dL (32.0-36.0); Mean Corpuscular Hemoglobin 32.4 pg (27.0-33.0); Mean Corpuscular Volume 93.1 fl (81.2-95.1); Mean Platelet Volume 9.2 fl (7.4-10.4); Platelet Count 287 10x3/uL (150-450); RBC Distribution Width 14.5 % (11.5-14.5); Red Blood Cell (RBC) Count 3.33 10x6/uL (4.32-5.72); White Blood Cell (WBC) Count 17.9 10x3/uL (3.5-10.5)
[2022-10-16 05:09] LABS: MDiff Complete? YES
[2022-10-16 05:10] LABS: Anion Gap 10 mmol/L (10-20); BUN (Urea Nitrogen) 12 mg/dL (8.4-25.7); Calc. Creatinine Clearance 65 mL/min (70-130); Calcium 9.1 mg/dL (7.8-10.44); Carbon Dioxide 28 mmol/L (23-31); Chloride 101 mmol/L (98-107); Estimated GFR 96; Glucose 118 mg/dL (83-110); Potassium 4.2 mmol/L (3.5-5.1); Sodium 135 mmol/L (136-145)
[2022-10-16 05:40] LABS: Band 7 % (5-11); Lymphocytes 3 % (21-51); Monocytes 9 % (0-10); Neutrophil 81 % (42-75)
[2022-10-16 05:45] LABS: Macrocytosis SLIGHT = 6-15 cells (100X) (0-5/hpf); Ovalocytes SLIGHT = 2-5 cells (100X) (0-1/hpf); Schistocytes SLIGHT = 2-5 cells (100X) (0-1/hpf)
[2022-10-16 05:46] LABS: Platelet Morphology Comment Appears Adequate; Polychromasia SLIGHT = 2-3 cells (100X) (0-2/hpf)
[2022-10-16] MEDS: Nystatin 500,000 UNITS/5 ML UDCUP SSW SCH ×5 (07:51→20:25)
[2022-10-16] MEDS: Mometasone/Formoterol 60 PUFF AER INH SCH ×2 (08:54→19:45)
[2022-10-16] MEDS: Nicotine 14 MG PATCH TD SCH (14:37)
[2022-10-16] MEDS: Morphine 2 MG/ML VIAL SLOW IVP PRN ×2 (14:37→20:29)
[2022-10-16] MEDS: Fluconazole In NaCl,Iso-Osm 200 MG in Premix Bag 1 BAG IVPB SCH (20:25)
[2022-10-17] MEDS: Ipratropium Bromide 2.5 ml Neb NEB SCH ×4 (01:00→20:55)
[2022-10-17] MEDS: Vancomycin HCl 750 MG in Sodium Chloride 0.9% 250 ML 250 ML IVPB SCH ×2 (01:32→15:20)
[2022-10-17] MEDS: Tobramycin Sulfate 0.3% Ophth Susp 5 ml Bottle EA EYE SCH ×6 (01:32→22:30)
[2022-10-17] MEDS: Cefepime 2 GM in Sodium Chloride 0.9% 100 ML IVPB SCH ×2 (01:32→12:32)
[2022-10-17 05:25] LABS: #Basophils 0.1 10x3/uL (0.0-0.2); #Monocytes 1.9 10x3/uL (0.0-1.1); #Neutrophils 9.5 10x3/uL (1.5-8.4); %Basophils 0.4 % (0.0-2.0); %Eosinophils 0.2 % (0.0-6.0); %Monocytes 14.5 % (0.0-10.0); %Neutrophils 72.4 % (40.0-75.0); Anion Gap 14 mmol/L (10-20); BUN (Urea Nitrogen) 10 mg/dL (8.4-25.7); Calc. Creatinine Clearance 63 mL/min (70-130); Calcium 9.3 mg/dL (7.8-10.44); Carbon Dioxide 26 mmol/L (23-31); Chloride 98 mmol/L (98-107); Estimated GFR 95; Glucose 116 mg/dL (83-110); Hemoglobin 10.7 g/dL (13.5-17.5); Mean Corpuscular HGB CONC 35.3 g/dL (32.0-36.0); Mean Corpuscular Hemoglobin 32.8 pg (27.0-33.0); Mean Corpuscular Volume 92.9 fl (81.2-95.1); Mean Platelet Volume 9.4 fl (7.4-10.4); Platelet Count 300 10x3/uL (150-450); Potassium 4.4 mmol/L (3.5-5.1); RBC Distribution Width 14.2 % (11.5-14.5); Red Blood Cell (RBC) Count 3.26 10x6/uL (4.32-5.72); Sodium 134 mmol/L (136-145); White Blood Cell (WBC) Count 13.1 10x3/uL (3.5-10.5)
[2022-10-17] MEDS: Mometasone/Formoterol 60 PUFF AER INH SCH ×2 (08:13→20:55)
[2022-10-17] MEDS: Nystatin 500,000 UNITS/5 ML UDCUP SSW SCH ×5 (09:00→23:11)
[2022-10-17 13:46] LABS: Vancomycin, Trough 13.8 ug/mL
[2022-10-17 14:38] LABS: CMV DNA-PCR Test Positive < 200 IU/mL (Negative)
[2022-10-17] MEDS: Nicotine 14 MG PATCH TD SCH (17:53)
[2022-10-17] MEDS: Fluconazole In NaCl,Iso-Osm 200 MG in Premix Bag 1 BAG IVPB SCH (22:29)
[2022-10-18] MEDS: Ipratropium Bromide 2.5 ml Neb NEB SCH ×4 (01:00→20:59)
[2022-10-18] MEDS: Tobramycin Sulfate 0.3% Ophth Susp 5 ml Bottle EA EYE SCH ×6 (05:33→21:36)
[2022-10-18] MEDS: Mometasone/Formoterol 60 PUFF AER INH SCH ×2 (07:20→21:00)
[2022-10-18 07:57] VITALS: BMI 16.5
[2022-10-18] MEDS: Nystatin 500,000 UNITS/5 ML UDCUP SSW SCH ×4 (08:32→21:36)
[2022-10-18] MEDS: Nicotine 14 MG PATCH TD SCH (16:36)
[2022-10-18] MEDS: Fluconazole In NaCl,Iso-Osm 200 MG in Premix Bag 1 BAG IVPB SCH (21:33)
[2022-10-19] MEDS: Tobramycin Sulfate 0.3% Ophth Susp 5 ml Bottle EA EYE SCH ×4 (02:16→17:22)
[2022-10-19] MEDS: Ipratropium Bromide 2.5 ml Neb NEB SCH ×3 (03:06→13:35)
[2022-10-19] MEDS: Mometasone/Formoterol 60 PUFF AER INH SCH (08:40)
[2022-10-19] MEDS: Nystatin 500,000 UNITS/5 ML UDCUP SSW SCH ×2 (10:32→17:22)
[2022-10-19 17:20] VITALS: BP 125/78; TEMP 98.3
[2022-10-19] MEDS: Nicotine 14 MG PATCH TD SCH (17:22)
== END 2022-10-19 17:30 | disposition home health service (06) | DRG 146 ==
LOC: SUATTDRO 11:16 → CSHERS 11:16 → CSHERHOLD 16:47 → CSHTELE 22:22
PROVIDERS: ADMIT Student in an Organized Health Care Education/Training Program; ATTEND Hospitalist
PROC: 3E0336Z Introduction of Nutritional Substance into Peripheral Vein, Percutaneous Approach (ICD-10-PCS; 2022-10-08)
PROC: 0DH63UZ Insertion of Feeding Device into Stomach, Percutaneous Approach (ICD-10-PCS; principal; 2022-10-12)
DX: C02.9 Malignant neoplasm of tongue, unspecified (principal); E43 Unspecified severe protein-calorie malnutrition; Z68.1 Body mass index [BMI] 19.9 or less, adult; C15.9 Malignant neoplasm of esophagus, unspecified; E78.5 Hyperlipidemia, unspecified; I25.10 Atherosclerotic heart disease of native coronary artery without angina pectoris; E11.9 Type 2 diabetes mellitus without complications; J44.9 Chronic obstructive pulmonary disease, unspecified; F17.210 Nicotine dependence, cigarettes, uncomplicated; H10.9 Unspecified conjunctivitis; D64.9 Anemia, unspecified; R13.12 Dysphagia, oropharyngeal phase; Z20.822 Contact with and (suspected) exposure to COVID-19; Z79.82 Long term (current) use of aspirin; Z79.899 Other long term (current) drug therapy; Z95.5 Presence of coronary angioplasty implant and graft; Z98.890 Other specified postprocedural states
CPT/HCPCS: 36415; 36416; 70487; 70553; 71045; 71275; 76705; 80048; 80053; 80202; 81003; 81015; 83605; 83735; 84100; 84145; 85025; 87040; 87086; 87497; 93005; 94640; 94664; 94760; 96374; 96375; J0692; J1450; J1650; J2175; J2272; J2704; J3370; J3475; J3480; J3490; J7030; J7050; J7120; J7620; Q0163; Q9967